=== PATIENT | male | born 1980 | race Caucasian/White ===

== ENCOUNTER 2017-10-05 11:06 | Emergency (ER) | payer SELFPAY ==
[2017-10-05 11:27] VITALS: BP 138/99; PULSE 89; TEMP 99.3; BMI 37.3
--- NOTE | 2017-10-05 12:07 | PDOC ---
History of Present Illness <Payton Santana - Last Filed: 10/05/17 14:39> - General History Source: Patient (The patient is a 37 year old male, with no significant PMH, who presents to the emergency department complaining of sore throat and congestion for 2 days. The patient also reports an episode of epistaxis which has since resolved on its own. The patient denies sick contacts. 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 He denies any recent exposure to construction or fumes. The patient denies EtOH use, and recreational drug use. The patient denies any chest pain or shortness of breath. ) Exam Limitations: No Limitations <Mayito Mares - Last Filed: 10/05/17 14:53> - General Chief Complaint: Sore Throat Stated Complaint: SORE THROAT Time Seen by Provider: 10/05/17 11:12 Past History - Past Medical History COPD: No DVT: No - Suicide/Smoking/Psychosocial Hx Smoking History: Current every day smoker Number of Cigarettes Smoked Daily: 2 Information on smoking cessation initiated: Yes 'Breaking Loose' booklet given: 10/05/17 Hx Alcohol Use: Yes Drug/Substance Use Hx: No Substance Use Type: Alcohol <Payton Santana S - Last Filed: 10/05/17 14:39> <Mayito Mares - Last Filed: 10/05/17 14:53> - Past Medical History Allergies/Adverse Reactions: Allergies Allergy/AdvReac Type Severity Reaction Status Date / Time No Known Allergies Allergy Verified 10/05/17 11:07 Home Medications: Ambulatory Orders Cetirizine HCl [Zyrtec -] 10 mg PO DAILY #7 tablet 10/05/17 Review of Systems - Review of Systems Constitutional: No: Chills, Fever, Weakness HEENTM: Yes: Nose Congestion, Nose Bleeding, Throat Pain. No: Blurred Vision, Ear Pain, Throat Swelling, Difficulty Swallowing Respiratory: No: Cough, Shortness of Breath, SOB with Exertion, Wheezing Cardiac (ROS): No: Chest Pain, Palpitations, Syncope ABD/GI: No: Constipated, Diarrhea, Nausea, Vomiting : No: Dysuria, Frequency, Urgency Musculoskeletal: No: Back Pain, Joint Pain, Joint Swelling, Neck Pain Integumentary: No: Bruising, Rash Neurological: No: Headache, Numbness, Tingling, Weakness, Unsteady Gait, Dizziness Psychiatric: No: Anxiety, Depression Endocrine: No: Intolerance to Cold, Intolerance to Heat, Unexplained Weight Gain , Unexplained Weight Loss Hematologic/Lymphatic: No: Anemia, Blood Clots <Mayito Mares - Last Filed: 10/05/17 14:53> *Physical Exam - Vital Signs Last Vital Signs Temp Pulse Resp BP Pulse Ox 99.3 F 89 17 138/99 100 10/05/17 11:07 10/05/17 11:07 10/05/17 11:07 10/05/17 11:07 10/05/17 11:07 <MalinaPayton cruz S - Last Filed: 10/05/17 14:39> - Vital Signs Last Vital Signs Temp Pulse Resp BP Pulse Ox 99.3 F 89 17 138/99 100 10/05/17 11:07 10/05/17 11:07 10/05/17 11:07 10/05/17 11:07 10/05/17 11:07 - Physical Exam General Appearance: Yes: Nourished, Appropriately Dressed. No: Apparent Distress HEENT: positive: EOMI, MANN, Normal Voice, Symmetrical, TMs Normal, Pharyngeal Erythema Neck: positive: Trachea midline, Supple. negative: Tender Respiratory/Chest: positive: Lungs Clear, Normal Breath Sounds. negative: Respiratory Distress, Accessory Muscle Use, Crackles, Rales, Rhonchi, Wheezing Cardiovascular: positive: Regular Rhythm, Regular Rate, S1, S2. negative: Edema , JVD, Murmur Gastrointestinal/Abdominal: positive: Normal Bowel Sounds, Soft. negative: Tender, Organomegaly, Guarding, Rebound Lymphatic: negative: Adenopathy, Tenderness Musculoskeletal: positive: Normal Inspection. negative: CVA Tenderness Extremity: positive: Normal Capillary Refill, Normal Inspection, Normal Range of Motion. negative: Tender Integumentary: positive: Normal Color, Dry, Warm Neurologic: positive: white lead grinder II-XII NML intact, Fully Oriented, Alert, Normal Mood/ Affect, Normal Response, Motor Strength 5/5 <Mayito Mares - Last Filed: 10/05/17 14:53> ED Treatment Course - ADDITIONAL ORDERS Additional order review: 10/05/17 12:10 Group A Strep Rapid Antigen - Final Throat NEGATIVE FOR THE ANTIGEN OF BETA HEMOLYTIC STREP GROUP A - Medications Given in the ED: ED Medications Discontinued Medications Generic Name Dose Route Start Last Admin Trade Name Sesar PRN Reason Stop Dose Admin Ibuprofen 600 mg 10/05/17 13:59 10/05/17 14:03 Motrin - PO 10/05/17 14:00 600 mg ONCE ONE Administration <Mayito Mares - Last Filed: 10/05/17 14:53> *DC/Admit/Observation/Transfer - Discharge Dispostion Decision to Admit order: No <Payton Santana - Last Filed: 10/05/17 14:39> - Attestations Scribe Attestion: 10/05/17 14:49 Documentation prepared by Mayito Mares, acting as medical physicist for Payton Santana MD. <Mayito Mares - Last Filed: 10/05/17 14:53> Diagnosis at time of Disposition: Sore throat - Discharge Dispostion Disposition: HOME Condition at time of disposition: Stable - Prescriptions Prescriptions: Cetirizine HCl [Zyrtec -] 10 mg PO DAILY #7 tablet - Patient Instructions Printed Discharge Instructions: DI for Viral Upper Respiratory Infection -- Adult - Post Discharge Activity Forms/Work/School Notes: Back to Work
[2017-10-05] MEDS ORDERED: IBUPROFEN 600 MG TABLET (FP) PO ONE ×2 (13:59→14:02)
== END 2017-10-05 14:47 | disposition home or self-care (01) ==
LOC: FER 11:06
DX: J02.9 Acute pharyngitis, unspecified (principal); F17.210 Nicotine dependence, cigarettes, uncomplicated
CPT/HCPCS: 87070; 87430; 99281-25